=== PATIENT | female | born 1930 | race Caucasian/White ===

== ENCOUNTER → 2019-02-27 | Outpatient (CLI) | payer OTHER, BC ==
[~2019-02-27] VITALS: Ht 170.2 cm; Wt 81.6 kg
[~2019-02-27] MED LIST: ARICEPT 5 MG TAB5 MG PO; ASPIRIN EC81 M1 PO; CELEBREX 200 M200 M1 PO; CENTRUM SILVER1 EAC1 PO; FLEXERIL PO; FOLIC ACID1 MG PO; KLOR-CON 10 ER10 MEQ PO; KLOR-CON 1010 MEQ PO; LOMOTIL TABLET1 EACH PO; LOPRESSOR50 PO; LOSARTAN-HCTZ1 EACH PO; OMEGA-31000 M1 PO; PREDNISONE 5 MG5 M1 PO; PROPRANOLOL 1010 MG PO; RANITIDINE HCL150 M1 PO; SULFASALAZINE500 M5 PO; TOPROL XL50 MG PO; TREXALL15 MG PO; VISION VITAMIN1 EACH PO; VITAMIN D1000 UNI1 PO; ZOCOR20 MG PO
[2019-02-27 06:46] VITALS: BP 191/87
[2019-02-27 07:29] LABS: HEMATOCRIT 39.7 % (37.0-47.0); MCH 32.9 pg (26.0-34.0); MCHC 32.8 g/dL (28.0-37.0); MCV 100.2 fL (80.0-100.0); RBC 3.96 mil/uL (4.20-5.00); RDW 15.8 % (10.5-14.5); WBC 8.6 thou/uL (4.0-11.0)
[2019-02-27 07:33] LABS: CALCIUM 9.5 mg/dL (8.5-10.1); POTASSIUM 3.8 mmol/L (3.5-5.1)
--- NOTE | 2019-02-27 16:40 | EKG ---
[place] [address] [facility] [employer] [address] ELECTROCARDIOGRAM REPORT Name: SHAUNA CANNON [id number] Ad[facility]: 02/27/19 Attend Phys: Lev Pederson MD, Discharge: Date of : [birth year] Report #: [id number] THIS REPORT FOR: //name// [facility] Test Date: 2019-02-27 Test Time: 07:29:21 Pat Name: SHAUNA CANNON Department: Room: Gender: F Reflow Operator: Margarita FONG : 1930 Requested By: Lev Pederson Order Number: [id number] MD: Bradly Briceno Measurements Intervals [place] Rate: 59 P: -7 MN: 220 QRS: -24 QRSD: 101 T: 72 QT: 441 QTc: 437 Interpretive Statements Sinus rhythm Prolonged MN interval LVH with secondary repolarization abnormality Compared to ECG 01/20/2013 07:37:29 First degree AV block now present Early repolarization now present Sinus bradycardia no longer present Sinus arrhythmia no longer present Electronically Signed On 02-27-2019 16:39:54 CDT by Bradly Briceno [email or web address] <ELECTRONICALLY SIGNED> By: Bradly Briceno MD 02/27/19 1639 0729 0729 Bradly Briceno MD /EPI
--- NOTE | 2019-03-03 09:27 | CATHLAB ---
[facility] [address] [place] [address] INVASIVE PROCEDURE REPORT Name: SHAUNA CANNON [facility] [id number] Admission: 02/27/19 Attend Phys: Lev Pederson, Discharge: Date of : [birth year] Report #: [id number] THIS REPORT FOR: //name// APPROVED REPORT Study performed: 02/27/2019 07:24:48 Patient Details Patient Status: Out-Patient Room #: The patient is a 88 year-old female Event Personnel Lev Pederson Street Cleaner, Kody Pool RN RN, Taryn Renteria RTR, DANNY Scrub, Shanda Martinez RTR Scrub, Shanda Martinez RTR Scrub, Vaishali Alvarado Monitor, Crystal Mcnamara RTJim Monitor Procedures Performed Art Access - R femoral artery* Left Heart Cath w/or w/o Coronaries [id number] [facility] [address] Initial Mod Sed Same Phys/QHP 5y [id number] Renal Bilateral Peripheral Angiography [id number] CVRENALBIL Hemostasis w/ Mynx Indication Chest pain Procedure Narrative The Right Groin^ was infiltrated with 1% Lidocaine subcutaneous anesthesia. A PINNACLE 6FR Sheath #[id number] sheath was inserted into the RFA^. Coronary angiography was performed using coronary diagnostic catheters. The right coronary system was accessed and visualized with a JR4 catheter. The left coronary system was accessed and visualized with a JL4 catheter. The left ventricle was accessed and visualized with a Pigtail catheter. Left ventriculogram was performed in 30 degree projection. Pre-demployment femoral angiogram was performed . Closure device was deployed with a Fr MYNXGRIP 6/7F #[id number]. Hemostasis was obtained with manual pressure following sheath removal without any complications. The patient tolerated the procedure well and there were no complications associated with the procedure. There was no hematoma. Intraoperative Conscious Sedation Sedation start time: 8:31 Case end Time: 8:58 Fentanyl 50 mcg Versed 1 mg [facility] [address] [place] [address] INVASIVE PROCEDURE REPORT Name: SHAUNA CANNON Markos Room #: [facility]#: [id number] Admission: 02/27/19 Attend Phys: Lev Pederson, Discharge: Date of : [birth year] Report #: [id number] Fluoro Time: 1.33 minutes Dose: DAP 2637.30 cGycm2 321 mGy Contrast Type and Amount: Visipaque 50 ml Hemodynamics The aortic pressure is 203/83 mmHg with a mean of 129 mmHg. The left ventricular pressure is 155/12 mmHg with a mean of mmHg. The left ventricular end diastolic pressure is 27 mmHg. Conclusion #1 hyperdynamic LV function EF 70-75%. Cavity obliteration is noted #2 left main moderate size free of disease giving rise to LAD and circumflex #3 LAD extends to the apex proximal calcification mild eccentric 3040% proximal mid vessel lesion no occlusive disease. #4 circumflex OM nondominant with mild irregularity #5 large dominant right coronary artery without occlusive disease. #6 right renal artery selectively injected due to suspected renal atherosclerosis. There is a moderate amount of distal what appears to be fibromuscular disease. Not flow limiting will follow this. #7 left renal artery selectively injected mild ostial disease Conditions and plan: Continue aggressive risk factor modification. No indication for coronary or renal artery intervention. Will obtain renal Doppler in future to correlate extent of FMD for flow limitation and right renal artery. Does not appear to be flow-limiting angiographically. <ELECTRONICALLY SIGNED> By: Lev Pederson MD, FACC 03/03/19926 6 6 Lev Pederson MD, FACC /INF
== END | disposition home or self-care (01) ==
LOC: CATH 06:11
PROVIDERS: Internal Medicine Cardiovascular Disease
DX: R07.9 Chest pain, unspecified (principal); I25.10 Atherosclerotic heart disease of native coronary artery without angina pectoris; I10 Essential (primary) hypertension; M06.9 Rheumatoid arthritis, unspecified; Z96.653 Presence of artificial knee joint, bilateral; Z98.890 Other specified postprocedural states; Z88.8 Allergy status to other drugs, medicaments and biological substances; Z79.82 Long term (current) use of aspirin; Z79.899 Other long term (current) drug therapy